=== PATIENT | male | born 1985 | race Caucasian/White ===

== ENCOUNTER 2019-01-17 07:19 | Emergency (ER) | payer OTHER, MEDICAID ==
[2019-01-17] MEDS ORDERED: ASPIRIN 81 MG TABLET, CHEWABLE PO ONE (09:23)
--- NOTE | 2019-01-17 09:25 | ER Document Report ---
ED Medical Screen (RME) - General Chief Complaint: Chest Pain Stated Complaint: CHEST PAIN Time Seen by Provider: 01/17/19 09:20 Mode of Arrival: Ambulatory Information source: Patient Notes: Patient presents complaining of midsternal chest pain that radiates through to his back that started suddenly at 630 this morning. Patient states that the pain is present at this time and worsens with exertion. Patient states he did have an episode where his lips and hands felt numb but that has since resolved. Patient does report a family history of his grandfather passing away in his early 30s from heart disease. Patient does have a history of high cholesterol but has been attempting to treat this with diet. I have greeted and performed a rapid initial assessment of this patient. A comprehensive ED assessment and evaluation of the patient, analysis of test results and completion of the medical decision making process will be conducted by additional ED providers. TRAVEL OUTSIDE OF THE [place] IN LAST 30 DAYS: No - Related Data Allergies/Adverse Reactions: shellfish derived Allergy (Verified 01/17/19 07:21) Past Medical History - Social History Chew tobacco use (# tins/day): No Frequency of alcohol use: None Drug Abuse: None - Past Medical History Cardiac Medical History: Reports: Hx Hypercholesterolemia Renal/ Medical History: Denies: Hx Peritoneal Dialysis Physical Exam - Vital signs Vitals: Temp Pulse Resp BP Pulse Ox 97.6 F 65 16 109/63 97 01/17/19 07:26 01/17/19 07:26 01/17/19 07:26 01/17/19 07:26 01/17/19 07:26 - Cardiovascular Rhythm: Regular Heart sounds: S1 appreciated, S2 appreciated Murmur: No Course - Vital Signs Vital signs: Temp Pulse Resp BP Pulse Ox 97.6 F 65 16 109/63 97 01/17/19 07:26 01/17/19 07:26 01/17/19 07:26 01/17/19 07:26 01/17/19 07:26
[2019-01-17 10:03] LABS: ABSOLUTE EOSINOPHILS # (AUTO) 0.1 10^3/uL (0.0-0.6); ABSOLUTE LYMPHOCYTES (AUTO) 3.8 10^3/uL (0.5-4.7); ABSOLUTE MONOCYTES (AUTO) 0.5 10^3/uL (0.1-1.4); ABSOLUTE NEUT (AUTO) 4.5 10^3/uL (1.7-8.2); BASOPHILS % (AUTO) 0.5 % (0-2); EOSINOPHILS % (AUTO) 0.9 % (0-6); HEMATOCRIT 47.2 % (37.9-51.0); HEMOGLOBIN 16.7 g/dL (13.5-17.0); LYMPHOCYTES % (AUTO) 42.3 % (13-45); MEAN CORPUSCULAR HEMOGLOBIN 29.7 pg (27.0-33.4); MEAN CORPUSCULAR HGB CONC 35.3 g/dL (32.0-36.0); MEAN CORPUSCULAR VOLUME 84 fl (80-97); MONOCYTES % (AUTO) 5.5 % (3-13); PLATELET COUNT 168 10^3/uL (150-450); RED BLOOD COUNT 5.62 10^6/uL (4.35-5.55); RED CELL DISTRIBUTION WIDTH 13.3 % (11.5-14.0); SEGMENTED NEUTROPHILS % (AUTO) 50.8 % (42-78); TOTAL CELLS COUNTED % (AUTO) 100 %; WHITE BLOOD COUNT 8.9 10^3/uL (4.0-10.5)
[2019-01-17 10:08] LABS: ALANINE AMINOTRANSFERASE 59 U/L (21-72); ALBUMIN 4.5 g/dL (3.5-5.0); ALKALINE PHOSPHATASE 63 U/L (38-126); ANION GAP 9 (5-19); ASPARTATE AMINO TRANSFERASE 36 U/L (17-59); BILIRUBIN,DIRECT 0.2 mg/dL (0.0-0.4); BILIRUBIN,TOTAL 0.7 mg/dL (0.2-1.3); BLOOD UREA NITROGEN 17 mg/dL (7-20); CALCIUM 9.8 mg/dL (8.4-10.2); CARBON DIOXIDE 31 mmol/L (22-30); CHLORIDE 103 mmol/L (98-107); GLUCOSE 111 mg/dL (75-110); LIPASE 560.1 U/L (23-300); POTASSIUM 4.6 mmol/L (3.6-5.0); SODIUM 142.8 mmol/L (137-145); TOTAL PROTEIN 7.7 g/dL (6.3-8.2)
--- NOTE | 2019-01-17 10:10 | RADIOLOGY REPORT (SQ) ---
EXAM DESCRIPTION: CHEST 2 VIEWS COMPLETED DATE/TIME: 01/17/2019 9:43 am REASON FOR STUDY: cp COMPARISON: None. EXAM PARAMETERS: NUMBER OF VIEWS: two views TECHNIQUE: Digital Frontal and Lateral radiographic views of the chest acquired. RADIATION DOSE: NA LIMITATIONS: none FINDINGS: LUNGS AND PLEURA: No opacities, masses or pneumothorax. No pleural effusion. MEDIASTINUM AND HILAR STRUCTURES: No masses or contour abnormalities. HEART AND VASCULAR STRUCTURES: Heart normal size. No evidence for failure. BONES: No acute findings. HARDWARE: None in the chest. OTHER: No other significant finding. IMPRESSION: NO ACUTE RADIOGRAPHIC FINDING IN THE CHEST. TECHNICAL DOCUMENTATION: JOB ID: [id number] [employer]- All Rights Reserved Reading location - IP/workstation name: [email or web address]
[2019-01-17] MEDS ORDERED: PANTOPRAZOLE SODIUM 40 MG VIAL IV ONE (15:24)
--- NOTE | 2019-01-17 16:29 | RADIOLOGY REPORT (SQ) ---
EXAM DESCRIPTION: U/S ABDOMEN LIMITED W/O DOP COMPLETED DATE/TIME: 01/17/2019 4:15 pm REASON FOR STUDY: cp-back pain, elevated lipase COMPARISON: None. TECHNIQUE: Dynamic and static grayscale images acquired of the abdomen and recorded on PACS. Nancyo zahra selected color Doppler and spectral images recorded. LIMITATIONS: None. FINDINGS: PANCREAS: The pancreas is only partially visualized secondary to overlying bowel gas. The pancreas appears to be mildly hypoechoic which can be seen with acute pancreatitis. LIVER: No masses. Echotexture normal. LIVER VASCULATURE: Normal directional flow of the main portal vein and hepatic veins. GALLBLADDER: No stones. Normal wall thickness. No pericholecystic fluid. ULTRASOUND-DETECTED FORD'S SIGN: Negative. INTRAHEPATIC DUCTS AND COMMON DUCT: CBD and intrahepatic ducts normal caliber. No filling defects. AORTA: No aneurysm. RIGHT KIDNEY: Normal size. Normal echogenicity. No solid or suspicious masses. No hydronephrosis. No calcifications. PERITONEAL AND RIGHT PLEURAL SPACE: No ascites or effusions. OTHER: No other significant findings. IMPRESSION: Partially visualized pancreas is mildly hypoechoic. This can be normal or can be seen w ith acute pancreatitis. Clinical correlation recommended. TECHNICAL DOCUMENTATION: JOB ID: [id number] [employer]- All Rights Reserved Reading location - IP/workstation name: [email or web address]
--- NOTE | 2019-01-17 16:57 | RADIOLOGY REPORT (SQ) ---
EXAM DESCRIPTION: CT ABD/PELVIS WITH IV ONLY COMPLETED DATE/TIME: 01/17/2019 4:35 pm REASON FOR STUDY: left upper quad pain with elevated lipase COMPARISON: None. TECHNIQUE: CT scan of the abdomen and pelvis performed using helical scanning technique with dynamic intravenous contrast injection. No oral contrast. Images reviewed with lung, soft tissue, and bone w indows. Reconstructed coronal and sagittal MPR images reviewed. Delayed images for evaluation of the urinary system also acquired. All images stored on PACS. All CT scanners at this facility use dose modulation, iterative reconstruction, and/or weight based d osing when appropriate to reduce radiation dose to as low as reasonably achievable (ALARA). [facility]: Dose Right [facility]: CareDose [facility]: Dose Right [facility]: Teradose 4D [facility]: OpenROV CONTRAST TYPE AND DOSE: contrast/concentration: Isovue 350.00 mg/ml; Total Contrast Delivered: 100.0 ml; Total Saline Delivered: 72.0 ml RENAL FUNCTION: None required. The patient is less than 50 years old. RADIATION DOSE: CT Rad equipment meets quality standard of care and radiation dose reduction techniq ues were employed. CTDIvol: 8.9 - 12.6 mGy. DLP: 1206 mGy-cm.. LIMITATIONS: None. FINDINGS: LOWER CHEST: No significant findings. LIVER: Normal size. No enhancing masses. No dilated ducts. SPLEEN: Normal size. No focal lesions. PANCREAS: No masses identified. No significant calcifications. No adjacent inflammation or peripancre atic fluid collections. Pancreatic duct not dilated. GALLBLADDER: No calcified stones. No inflammatory changes to suggest cholecystitis. ADRENAL GLANDS: No significant masses. RIGHT KIDNEY AND URETER: No cysts identified. No solid masses identified. No calcified stones. No hyd ronephrosis or hydroureter. LEFT KIDNEY AND URETER: 1.6 cm left renal lower pole exophytic cyst. No solid masses identified. No c alcified stones. No hydronephrosis or hydroureter. AORTA AND VESSELS: No aneurysm. No dissection. Renal arteries, SMA, celiac without significant stenos is. RETROPERITONEUM: No bulky retroperitoneal adenopathy. BOWEL AND PERITONEAL CAVITY: Mild colonic diverticulosis. No obstruction or inflammatory changes. No free fluid. APPENDIX: Normal. PELVIS: No mass. No free fluid. Unremarkable bladder. ABDOMINAL WALL: No masses. No hernias. BONES: No acute findings. OTHER: No other significant finding. IMPRESSION: NO ACUTE FINDINGS IN THE ABDOMEN OR PELVIS ON CT SCAN WITH IV CONTRAST.1.6 cm left renal lower pole exophytic cyst. TECHNICAL DOCUMENTATION: JOB ID: [id number] [place]-72 Quality ID # [id number]: Final reports with documentation of one or more dose reduction techniques (e.g., Au tomated exposure control, adjustment of the mA and/or kV according to patient size, use of iterative reconstruction technique) 2010 [employer]- All Rights Reserved Reading location - IP/workstation name: [email or web address]
[2019-01-17] MEDS ORDERED: NORMAL SALINE 1000 ML 1,000 ML IV ONE (18:34)
[2019-01-17] MEDS ORDERED: MAG HYDROX/AL HYDROX/SIMETH SUSP 30 ML UDCUP PO PRN (19:07)
[2019-01-17] MEDS ORDERED: LIDOCAINE 2% VISCOUS SOLN 20 ML UDCUP PO ONE (19:07)
--- NOTE | 2019-01-17 19:14 | ER Document Report ---
ED General - General Chief Complaint: Chest Pain Stated Complaint: CHEST PAIN Time Seen by Provider: 01/17/19 09:20 Mode of Arrival: Ambulatory Information source: Patient Notes: Patient is a 33-year-old male comes emergency room complaining of chest pain. Patient states that he woke up about 6:30 AM this morning when he was laying on his left side noticed that he was in a lot of discomfort and pain and was not able to turn himself over. He states "I was struggling" to get myself on my b ack. Once he got himself on his back he attempted to stand up and was not able to do so without crouching over. He states he had a stabbing pain in the middle of his chest. He broke out into cold sweats. Patient states he had his get in the car and they were on the way to the emergency room when he broke out into cold sweats and had another onset of severe discomfort. He states about that time his lips became numb in his upper extremities also became numb. The googled EMS and pull off to the side of the road and were picked up by the ambulance. They were brought him here this morning early. Patient stated that the time of call to EMS he felt like he was going down the tubes. He admits to eating last night hamburger helper and then later in the evening he had some oatmeal. Patient states that he had some discomfort in his chest on Monday but that was after he had been working out with his neighbor in the garage and this was a more of a musculoskeletal type of a presentation it hurt when he took a deep breath that only lasted for 24 hours. He does admit to having a lots of gas and burping a lot over the past several days as well. He has no history of surgeries in the past. He does have a family history of cardiac his grandfather in his 40s however he states that "he lived a hard life". He was a smoker, drinker, and did illegal drugs. Patient states the only abnormality has for his medical goes as he has a history of high cholesterol which she is trying to use diet for. Patient denies any drinking on any type of regular basis he will have an occasional drink. He admits to no smoking and he states he does not like to take any oral medications unless he absolutely has to. He denies any illicit drug use. There is also diabetes on both sides of the family. His mother and father have no history of cardiac problems or presentations or not diabetic. And have no history of surgeries. TRAVEL OUTSIDE OF THE [place] IN LAST 30 DAYS: No - HPI Onset: This morning Onset/Duration: Sudden, Persistent, Worse Quality of pain: Cramping, Sharp, Stabbing Pain Level: 5 Associated symptoms: denies: Shortness of breath Exacerbated by: Denies Relieved by: Denies Similar symptoms previously: No Recently seen / treated by doctor: No - Related Data Allergies/Adverse Reactions: shellfish derived Allergy (Verified 01/17/19 07:21) Past Medical History - General Information source: Patient - Social History Smoking Status: Never Smoker Cigarette use (# per day): No Chew tobacco use (# tins/day): No Smoking Education Provided: No Frequency of alcohol use: None Drug Abuse: None Lives with: Spouse/Significant other Family History: Reviewed & Not Pertinent Patient has suicidal ideation: No Patient has homicidal ideation: No - Past Medical History Cardiac Medical History: Reports: Hx Hypercholesterolemia Renal/ Medical History: Denies: Hx Peritoneal Dialysis Review of Systems - Review of Systems Constitutional: No symptoms reported EENT: No symptoms reported Cardiovascular: See HPI, Chest pain Respiratory: No symptoms reported Gastrointestinal: See HPI, Abdominal pain Genitourinary: No symptoms reported Male Genitourinary: No symptoms reported Musculoskeletal: No symptoms reported Skin: No symptoms reported Hematologic/Lymphatic: No symptoms reported Neurological/Psychological: No symptoms reported -: Yes All other systems reviewed and negative Physical Exam - Vital signs Vitals: Temp Pulse Resp BP Pulse Ox 97.6 F 65 16 109/63 97 01/17/19 07:26 01/17/19 07:26 01/17/19 07:26 01/17/19 07:26 01/17/19 07:26 Interpretation: Hypotensive - Notes Notes: PHYSICAL EXAMINATION: GENERAL: Well-appearing, well-nourished and in no acute distress. HEAD: Atraumatic, normocephalic. EYES: Pupils equal round and reactive to light, extraocular movements intact, sclera anicteric, conjunctiva are normal. ENT: Nares patent, oropharynx clear without exudates. Moist mucous membranes. NECK: Normal range of motion, supple without lymphadenopathy LUNGS: Breath sounds clear to auscultation bilaterally and equal. No wheezes rales or rhonchi. HEART: Regular rate and rhythm without murmurs ABDOMEN: Examination patient's abdomen shows he has bowel sounds all 4 quads. Patient displays moderate tenderness to palpation midepigastric area. Also displays some mild tenderness in the left upper quadrant to palpation. Patient does not have any reproducible anterior chest tenderness to palpation. He notes no increased pain or discomfort to resistance moves as well. Patient has no flank pain to percussion. Musculoskeletal: Normal range of motion, no pitting or edema. No cyanosis. NEUROLOGICAL: Normal speech, normal gait. Normal sensory, motor exams PSYCH: Normal mood, normal affect. SKIN: Warm, Dry, normal turgor, no rashes or lesions noted. Course - Re-evaluation Re-evalutation: 01/17/19 19:19 I have discussed case with Dr. Douglas and he had me add on a triglycerides to my labs. Patient's triglycerides came back to slightly elevated at 183. So he does not believe this is causing the pancreatitis. At this pointk's idiopathic kind of presentation for pancreatitis. At so low number and patient will probably need to be rechecked again in about 24 to 36 hours. He will need to [facility]up at [facility] for [facility] referral as well. In the meantime again discussed with Dr. Rajan we will treat pain and nausea and have him do a bland diet or i.e. clear liquids. I have informed patient I cannot tell him why he is having a pancreatitis attack given he has no history of smoking or drug abuse or gallbladder problems. He also is going to be treated with medication for a peptic ulcer kind of presentation as well. I informed him that one does not have anything to do with the other at this time. 01/17/19 20:11 Patient's repeat lipase did come back slightly elevated at 600. I discussed the case again with Dr. Franco and as stated earlier his triglycerides were done and they came back only slightly elevated which according to Dr. Franco was not sufficient enough to cause any type of a pancreatitis. At this point were going to call this an early pancreatitis and treat him outpatient with some pain medication nausea medication. I did give patient a GI cocktail which he got 100% relief of his discomfort presentation in his chest. I still believe her that he may have 2 possibilities of processes going on and one may be a baseline for him with his with his pancreatitis type elevation of lipase but the other would be a peptic ulcer presentation. I will place him on some Carafate as well along with some omeprazole. [facility] does [facility] I am going to give him a list of his findings so that he can take that for him to review. 01/17/19 20:[address] of his abdomen I did blood pressures on right and left side both were in the identical same. I really do not think this a presentation of a aortic dissection with patient looking so good and feeling so good. There was no indication that there was any indication on the CT of the pelvis that there was any type of dilatation in the lower abdomen. - Vital Signs Vital signs: Temp Pulse Resp BP Pulse Ox 97.6 F 65 15 112/78 98 01/17/19 07:26 01/17/19 07:26 01/17/19 19:01 01/17/19 19:01 01/17/19 19:01 - Laboratory Result Diagrams: 01/17/19 09:30 01/17/19 09:30 Laboratory results interpreted by me: 01/17/19 01/17/19 01/17/19 09:30 09:30 13:46 RBC 5.62 H Carbon Dioxide 31 H Glucose 111 H Triglycerides Lipase 560.1 H 649.2 H 01/17/19 13:46 RBC Carbon Dioxide Glucose Triglycerides 183 H Lipase Discharge - Discharge Clinical Impression: Peptic ulcer disease Pancreatitis Qualifiers: Chronicity: acute Pancreatitis type: unspecified pancreatitis type Acute pancreatitis complication: unspecified Qualified Code(s): K85.90 - Acute pancreatitis without necrosis or infection, unspecified Condition: Good Disposition: HOME, SELF-CARE Instructions: Acid-Suppressing Medication ([facility]), Antacid Therapy ([facility]), Chest Pain of Unclear Cause ([facility]), Oral Narcotic Medication ([facility]), Prilosec (Acid Pump Inhibitor) ([facility]), Ulcer ([facility]) Additional Instructions: I am giving you a copy of your labs as well as your ultrasound and CT reports he can take it to your primary doctor on your visit tomorrow. Since they are with the [facility] they have no access to this information. I am placing you on medication as we discussed Carafate and Prilosec for your reflux/ulcer presentation. But she has some pain medication and nausea medication for the your "pancreatitis type presentation. I truly believe you need to see a GI nestor in follow-up. You may want to repeat your lipase again within the next 3 to 4 days. Should you have increasing amount of pain discomfort nausea or vomiting return to ER for recheck. Prescriptions: Ondansetron [Zofran Odt 4 mg Tablet] 1 - 2 tab PO Q4HP PRN #10 tab.rapdis PRN Reason: Omeprazole 40 mg PO ACBRKFST #30 capsule. Oxycodone HCl/Acetaminophen [Percocet 5-325 mg Tablet] 1 tab PO Q4H PRN #15 tablet PRN Reason: Sucralfate [Carafate 1 gm Tablet] 1 gm PO ACHS #60 tablet Forms: Return to School
--- NOTE | 2019-01-17 19:40 | EKG REPORT ---
SEVERITY:- OTHERWISE NORMAL ECG - SINUS RHYTHM RIGHT AXIS DEVIATION : Confirmed by: Jamaica Hallman MD 17-Jan-2019 19:39:59
[2019-01-17] MEDS ORDERED: SUCRALFATE 1 GM TABLET PO ONE (20:22)
[2019-01-17 20:31] VITALS: BP 120/81
== END 2019-01-17 20:45 | disposition home or self-care (01) ==
LOC: ER 07:19
DX: K85.90 Acute pancreatitis without necrosis or infection, unspecified (principal); K27.9 Peptic ulcer, site unspecified, unspecified as acute or chronic, without hemorrhage or perforation; R07.9 Chest pain, unspecified; R61 Generalized hyperhidrosis; R20.0 Anesthesia of skin; R14.2 Eructation; R14.3 Flatulence; R10.9 Unspecified abdominal pain; R10.816 Epigastric abdominal tenderness; R10.812 Left upper quadrant abdominal tenderness; Z82.49 Family history of ischemic heart disease and other diseases of the circulatory system; Z91.013 Allergy to seafood
CPT/HCPCS: 93005; 99285; 96360; 36415; 83690; 84478; 85025; 80053; 84484; 71046; 76705; 74177; 93010; J3490; S0164; J7030